=== PATIENT | female | born 1995 | race Caucasian/White ===

== ENCOUNTER 2023-10-30 19:13 | Inpatient (IN) | payer BC, SELFPAY ==
[2023-10-30 19:26] VITALS: PULSE 171; PULSE 98; O2SAT 82; O2SAT 98
[2023-10-30 19:28] VITALS: BP 133/74; PULSE 99; RESP 16; TEMP 36.7
[2023-10-30 19:34] VITALS: BMI 34.4
[2023-10-30 19:58] LABS: Absolute Lymphocyte Count 1.79 X10^3/uL (0.83-4.51); Basophil# 0.03 X10^3/uL; Basophil% 0.3 % (0-1); Eosinophil# 0.05 X10^3/uL; Eosinophils% 0.4 % (0-5); Hematocrit 32.4 % (37-47); Hemoglobin 10.2 g/dL (12.0-15.0); Lymphocyte # 1.79 X10^3/ul (0.83-4.51); Lymphocyte % 15.5 % (19-41); Mean Corp Hgb Conc 31.5 g/dL (32-36); Mean Platelet Vol. 11.8 fl (6.2-12.0); Monocyte# 0.66 X10^3/uL; Monocyte% 5.7 % (0-10); NRBC Flagged by Analyzer 0 % (0-5); Neutrophil # 8.96 X10^3/uL (2.7-7.7); Neutrophil % 77.4 % (47-70); Platelet Count 309 K/mm3 (150-450); RBC Distribution Width CV 13.7 % (11.6-14.6); RBC Distribution Width SD 44.6 fl (35.1-43.9); Red Blood Count 3.64 M/mm3 (4.2-5.4); White Blood Count 11.6 K/mm3 (4.4-11.0)
[2023-10-30] MEDS: 0.9% Normal Saline Single 100 ML IV.SOLN. INTRA-UTER (20:50)
--- NOTE | 2023-10-30 21:06 | HP.PCM.OB_ITS ---
HPI - General General Date of Admission: 10/30/23 Date of Service: 10/30/23 Chief Complaint: induction HPI Narrative LEWIS LINK, is a 28 F who presents for a scheduled induction of labor at 39 weeks for history of severe pre eclampsia at 19 week gestation with first . She denies MORA, vision changes, RUQ pain, vomiting, ctx, vb, lof. Good FM. Reports her blood pressures at home have been 110's/70's. [facility] Medical History (Updated 10/30/23 @ 21:[address] Pilar Masters, DO) IUFD at less than 20 weeks of gestation PTSD (post-traumatic stress disorder) Migraines Asthma Anxiety Home Medications ?Medication ?Instructions ?Recorded ?Last Taken ?Type aspirin 81 mg capsule 162 mg PO DAILY pre e prevention 10/30/23 10/30/23 History vit no.95-ferrous 1 tab PO DAILY 10/30/23 Unknown History fumarate 28 mg-folic acid 800 mcg tablet () sertraline 100 mg tablet (Zoloft) 100 mg PO DAILY depression/anxiety 10/30/23 10/30/23 History Allergy/AdvReac Type Severity Reaction Status Date / Time codeine Allergy Intermediate Vomiting Verified 10/30/23 19:39 oxycodone Allergy Vomiting Verified 10/30/23 19:39 Social History Smoking Status: Never smoker History Elective abortions Hx Para 0 Spontaneous abortions Hx # Term Pregnancies Ectopic pregnancies Hx # Pregnancies Multiple births # of living children NST FHR Rate Baby A Baseline: 125 Variability:: Moderate Accelerations:: 15 x 15 Decelerations:: None NST Reactive:: Yes FHR Category:: Category I Uterine Activity:: none Vital Signs Vital Signs Vital Signs: 10/30/23 19:26 10/30/23 19:26 10/30/23 19:26 Temperature Temperature Source Pulse Rate 171 H 98 Respiratory Rate Blood Pressure BP Systolic BP Diastolic Pulse Ox 82 10/30/23 19:26 10/30/23 19:28 10/30/23 19:28 Temperature Temperature Source Pulse Rate 99 Respiratory Rate Blood Pressure 133/74 H BP Systolic 133 BP Diastolic 74 Pulse Ox 98 10/30/23 19:28 10/30/23 19:28 10/30/23 19:28 Temperature 98.0 F Temperature Source Temporal Pulse Rate Respiratory Rate 16 Blood Pressure BP Systolic BP Diastolic Pulse Ox Weight Weight: 227 lb Body Mass Index (BMI) 34.4 Physical Exam Const alert and no apparent distress General Appearance: comfortable HEENT normocephalic Resp normal respiratory effort GI GI Narrative: Gravid Narrative: Cvx 0.5/t/h, posterior Extremity normal to inspection Labs Labs Labs: Antibody Screen Pending Hct 32.4 % (37-47) L Hgb 10.2 g/dL (12.0-15.0) L Syphilis Total Ab Pending Assessment & Plan (1) 39 weeks gestation of : (2) History of pre-eclampsia: PLAN: BP normal on admission. No symptoms of pre e. Pre e labs normal on 10/25/23. (3) Encounter for planned induction of labor: PLAN: Admit for routine intrapartum care. Cvx 0.5/t/h, posterior. Bedside TAUS performed confirming vertex presentation. Intracervical jules placed in usual fashion with stylet and filled with 30 cc saline. Start PO Cytotec. GBS negative. Pelvis adequate and EFW < 4500 grams. Anticipate vaginal delivery. (4) PTSD (post-traumatic stress disorder): COMMENT: from 19.6 week IUFD
[2023-10-30] MEDS: miSOPROStol 25 MCG TABLET PO (21:28)
[2023-10-30 22:58] LABS: Syphilis Antibodies Non-reactive
[2023-10-30 23:00] VITALS: BP 121/67; PULSE 78; RESP 18; TEMP 36.4
[2023-10-31] VITALS (63 sets, daily range): BP systolic 113–157; BP diastolic 60–87; PULSE 68–112; RESP 16–18; TEMP 36.6–37.4; O2SAT 85–100
[2023-10-31] MEDS: miSOPROStol 25 MCG TABLET PO (01:52)
[2023-10-31] MEDS: Lactated Ringers 1,000 ML 50 ML IV (06:05)
[2023-10-31] MEDS: Oxytocin 15 Units/NS 250ml 15 UNITS/250 ML IV.SOLN 2 UNITS IV (06:06)
--- NOTE | 2023-10-31 06:14 | NURSING ---
Reviewed and agreed with Peyton RN charting.
[2023-10-31] MEDS: Lactated Ringers 1,000 ML 999 ML IV (09:45)
--- NOTE | 2023-10-31 09:46 | PCM.PN.OB ---
Subjective Subjective Resting in bed comfortable with epidural Objective Data Objective Data Vital Signs: Vital Signs Temp Pulse Resp BP Pulse Ox 98.5 F 76 16 148/87 H 100 10/31/23 08:53 10/31/23 08:55 10/31/23 08:53 10/31/23 08:55 10/31/23 08:54 Weight: 227 lb Body Mass Index (BMI) 34.4 Intake & Output: Intake and Output for Last 24 Hours 10/29/23 10/30/23 10/31/23 23:59 23:59 23:59 Intake Total 100 / 100 4.44 / 4.44 Output Total 250 / 250 300 / 300 Balance -150 / -150 -295.56 / -295.56 Lab / Micro Data 10/30/23 19:30 Labs: Laboratory Results - last 24 hr 10/30/23 19:30: WBC 11.6 H, RBC 3.64 L, Hgb 10.2 L, Hct 32.4 L, MCV 89.0, MCH 28.0, MCHC 31.5 L, RDW Std Deviation 44.6 H, RDW Coeff of Ina 13.7, Plt Count 309, MPV 11.8, Immature Gran % (Auto) 0.700, Neut % (Auto) 77.4 H, Lymph % (Auto) 15.5 L, [place] % (Auto) 5.7, Eos % (Auto) 0.4, Baso % (Auto) 0.3, Absolute Neuts (auto) 9.0 H, Absolute Lymphs (auto) 1.79, Nucleated RBC % 0, Syphilis Total Ab Non-reactive, Blood Type A POSITIVE, Antibody Screen NEGATIVE Physical Exam Narrative: AROM moderate amount of clear fluid. 5/70/-1 NST FHR Rate Baby A Baseline: 145 Variability:: Moderate Accelerations:: 15 x 15 Decelerations:: Variable FHR Category:: Category II Uterine Activity:: Irregular Assessment & Plan (1) Encounter for planned induction of labor: (2) History of pre-eclampsia: (3) 39 weeks gestation of : PLAN: Plan 1) Continue with active management 2) Positional changes 3) Epidural for pain management 4) Pitocin per protocol
[2023-10-31] MEDS: fentaNYL-bupivacaine (epidural) 100 ML BAG EPIDURAL ×2 (10:34→15:48)
[2023-10-31] MEDS: Lactated Ringers 1,000 ML 200 ML IV (14:52)
[2023-10-31] MEDS: Oxytocin 15 Units/NS 250ml 15 UNITS/250 ML IV.SOLN 83 UNITS IV (19:00)
--- NOTE | 2023-10-31 19:28 | EX.PCM.OBRPT ---
Assessment & Plan (1) Vaginal delivery: (2) First degree perineal laceration: Maternal Data Information RAYMOND Calculator Estimated Delivery Date Method Current WG Current Estimate 11/05/23 Manual 39w 2d Vaginal Delivery Maternal Presentation Maternal Presentation: Medically Indicated Induction Type of Induction: Pitocin and Maher Bulb Medical Reason for Induction: - (history of severe preeclampsia with D&E at 19w6d) Operative Information Date of Procedure: 10/31/23 Pre-Operative Diagnosis: Induction of labor Post-Operative Diagnosis: , first degree perineal laceration Surgery / Procedure Performed: Spontaneous Vaginal Delivery Type of Anesthesia: Epidural Estimated Blood Loss: 300 ml Time of Delivery: 18:23 Findings Description of Procedure: Progressed to complete with urge to push. Epidural for pain management. of viable male over intact perineum. APGARS 8,9 respectively. Infant head delivered with body immediately forthcoming. Placed on maternal abdomen, strong cry. Mouth and nares suctioned for secretions. Pitocin started for active 3rd stage management. Cord doubly clamped and cut by FOB after pulsations ceased, delayed cord clamping. Placenta delivered intact via castillo, 3 vessel cord intact. Perineum inspected and revealed 1st degree perineal laceration. Repaired with 3.0 vicryl rapide and epidural. Fundus firm and hemostasis achieved. EBL 300ml. Mom and baby stable, planning to breastfeed. Family bonding well. Dr. Sosa notified of delivery. Presentation: Vertex and DEBBIE Amniotic Membrane Rupture Type: Artificial Amniotic Fluid Description: Clear Placental Delivery Description: Spontaneous Placenta Disposition: [facility] Cord Vessel Description: 3 Vessels Cord Entanglement: None A Gender: Male (1 minute): 9 (5 minute): 9 Delayed Cord Clamping: Yes Post Vaginal Delivery Medications Given After Delivery: IV Pitocin Episiotomy Description: None Laceration: Perineal Extension/lac and 1st degree Complication Complications: None
[2023-11-01] MEDS: Acetaminophen 500 MG Tablet 1000 MG PO ×2 (03:37→10:04)
[2023-11-01 03:38] VITALS: BP 138/88; PULSE 90; RESP 16; TEMP 36.7
[2023-11-01] MEDS: Ibuprofen 600 MG Tablet PO ×3 (05:18→21:22)
[2023-11-01 05:31] LABS: Absolute Lymphocyte Count 1.62 X10^3/uL (0.83-4.51); Absolute Neutrophil Count 11.9 X10^3/uL (2.0-7.7); Basophil# 0.03 X10^3/uL; Basophil% 0.2 % (0-1); Eosinophil# 0.06 X10^3/uL; Eosinophils% 0.4 % (0-5); Hematocrit 28.6 % (37-47); Hemoglobin 9.3 g/dL (12.0-15.0); Lymphocyte # 1.62 X10^3/ul (0.83-4.51); Lymphocyte % 11.1 % (19-41); Mean Corp Hgb Conc 32.5 g/dL (32-36); Mean Corpuscular Hgb 28.5 pg (27.0-32.0); Mean Corpuscular Volume 87.7 fL (81-99); Mean Platelet Vol. 11.4 fl (6.2-12.0); Monocyte# 0.93 X10^3/uL; Monocyte% 6.3 % (0-10); NRBC Flagged by Analyzer 0 % (0-5); Neutrophil # 11.94 X10^3/uL (2.7-7.7); Neutrophil % 81.5 % (47-70); Platelet Count 240 K/mm3 (150-450); RBC Distribution Width CV 13.9 % (11.6-14.6); RBC Distribution Width SD 44.3 fl (35.1-43.9); Red Blood Count 3.26 M/mm3 (4.2-5.4); White Blood Count 14.7 K/mm3 (4.4-11.0)
[2023-11-01 07:43] VITALS: BP 120/79; PULSE 97; RESP 16; TEMP 36.4; O2SAT 99
--- NOTE | 2023-11-01 08:59 | PCM.PN.OB ---
Subjective Subjective Doing well. Ambulating and voiding without difficulty. Mild lochia. Breast feeding. Pain managed Objective Data Objective Data Vital Signs: Vital Signs Temp Pulse Resp BP Pulse Ox O2 Del Method 97.5 F L 97 16 120/79 99 Room Air 11/01/23 07:43 11/01/23 07:43 11/01/23 07:43 11/01/23 07:43 11/01/23 07:43 11/01/23 07:43 Oxygen Delivery Method Room Air Weight: 102.965 kg Body Mass Index (BMI) 34.4 Intake & Output: Intake and Output for Last 24 Hours 10/30/23 10/31/23 11/01/23 23:59 23:59 23:59 Intake Total 100 / 100 3203.33 / 3203.33 Output Total 250 / 250 3250 / 3250 Balance -150 / -150 -46.67 / -46.67 Lab / Micro Data 11/01/23 05:25 Labs: Laboratory Results - last 24 hr 11/01/23 05:25: WBC 14.7 H, RBC 3.26 L, Hgb 9.3 L, Hct 28.6 L, MCV 87.7, MCH 28.5, MCHC 32.5, RDW Std Deviation 44.3 H, RDW Coeff of Ina 13.9, Plt Count 240, MPV 11.4, Immature Gran % (Auto) 0.500, Neut % (Auto) 81.5 H, Lymph % (Auto) 11.1 L, [place] % (Auto) 6.3, Eos % (Auto) 0.4, Baso % (Auto) 0.2, Absolute Neuts (auto) 11.9 H, Absolute Lymphs (auto) 1.62, Nucleated RBC % 0 ROS Constitutional Constitutional: Denies fatigue, fever(s) or malaise Eyes Eyes: Denies change in vision ENT HEENT: Denies dizziness or headache(s) Cardiovascular Cardiovascular: Denies chest pain, dyspnea or lightheadedness Respiratory/Chest Respiratory/Chest: Denies cough or dyspnea Gastrointestinal Gastrointestinal: Denies change in bowel habits Genitourinary Genitourinary: Denies burning urination or genital lesions Integumentary Integumentary: Denies rash Neurologic Neurologic: Denies confusion, dizziness, headache(s), numbness or weakness Physical Exam Const alert and no apparent distress Narrative: Fundus firm, below umbilicus. Assessment & Plan (1) Vaginal delivery: (2) History of pre-eclampsia: (3) First degree perineal laceration: PLAN: Plan Expect discharge tomorrow
[2023-11-01] MEDS: Sertraline 100 MG Tablet PO (10:03)
[2023-11-01] MEDS: Senna/Docusate Sodium 1 Tablet PO (10:03)
[2023-11-01 12:00] VITALS: BP 130/87; PULSE 89; RESP 16; TEMP 36.3; O2SAT 100
[2023-11-01 16:50] VITALS: BP 127/80; PULSE 71; RESP 16; TEMP 36.7; O2SAT 99
[2023-11-01 20:40] VITALS: BP 120/68; PULSE 97; RESP 16; TEMP 37; O2SAT 97
[2023-11-02 02:40] VITALS: BP 102/56; PULSE 66; RESP 18; TEMP 36.4; O2SAT 98
--- NOTE | 2023-11-02 07:52 | PCM.PN.OB ---
Subjective Subjective Doing well. Ambulating and voiding without difficulty. Mild lochia. Breast feeding. Pain managed Objective Data Objective Data Vital Signs: Vital Signs Temp Pulse Resp BP Pulse Ox O2 Del Method 97.5 F L 66 18 102/56 L 98 Room Air 11/02/23 02:40 11/02/23 02:40 11/02/23 02:40 11/02/23 02:40 11/02/23 02:40 11/02/23 02:40 Oxygen Delivery Method Room Air Weight: 102.965 kg Body Mass Index (BMI) 34.4 Intake & Output: Intake and Output for Last 24 Hours 10/31/23 11/01/23 11/02/23 23:59 23:59 23:59 Intake Total 3203.33 / 3203.33 Output Total 3250 / 3250 Balance -46.67 / -46.67 Lab / Micro Data 11/01/23 05:25 ROS Constitutional Constitutional: Denies fatigue, fever(s) or malaise Eyes Eyes: Denies change in vision ENT HEENT: Denies dizziness or headache(s) Cardiovascular Cardiovascular: Denies chest pain, dyspnea or lightheadedness Respiratory/Chest Respiratory/Chest: Denies cough or dyspnea Gastrointestinal Gastrointestinal: Denies change in bowel habits Genitourinary Genitourinary: Denies burning urination or genital lesions Integumentary Integumentary: Denies rash Neurologic Neurologic: Denies confusion, dizziness, headache(s), numbness or weakness Physical Exam Const alert and no apparent distress Narrative: Fundus firm, below umbilicus. Assessment & Plan (1) Vaginal delivery: PLAN: Plan discharge home
--- NOTE | 2023-11-02 07:52 | PCM.DC.SUM ---
Providers Date of Admission: 10/30/23 Date of Discharge: 11/02/23 Primary Care Physician: Yadira Primary Care Phys Reason For Visit: LABOR Diagnosis Discharge Diagnosis (1) Vaginal delivery: Status: Acute Code(s): O80 - Encounter for full-term uncomplicated delivery Plan discharge home Medications at Discharge Home Medications vit no.95-ferrous fumarate 28 mg-folic acid 800 mcg tablet () 1 tab PO DAILY 10/30/23 sertraline 100 mg tablet (Zoloft) 100 mg PO DAILY depression/anxiety 10/30/23 Hospital Course Operations None Procedures None Weight / BMI Weight Weight: 102.965 kg Body Mass Index (BMI) 34.4 ABG / Lab / Microbiology Data 11/01/23 05:25 D/C Instructions May resume sexual activity in: 6 weeks Please Follow Up With: Mulu Sosa MD When: Follow up with our office in 1-2 and 6 weeks or as needed. [phone] Meaningful Use Info Meaningful Use Meaningful Use Diagnoses (Choose all that apply): None applicable Ischemic Stroke Statin Dosing Therapy Reference: STATIN DOSE THERAPY REFERENCE: * Patients > 75 years receive moderate or high dose statin therapy. * Patients 75 years or YOUNGER should receive HIGH intensity statin dose unless contraindicated. You will be required to document reason for non-treatment if statin daily dose does not meet guidelines. HIGH DOSE STATIN THERAPY DAILY Atorvastatin > than or = to 40 mg Rosuvastatin > than or = to 20 mg Amlodipine + Atorvastatin > than or = to 2.5/40 mg Ezetimibe + Simvastatin 10/80 mg Simvastatin 80mg Discharge Plan Admission Admit Date/Time: 10/30/23 19:13 Primary Reason for Your Visit: labor Attending Provider: Pilar Masters Primary Care Provider: Care Physician,Yadira Primary Discharge Orders/Prescriptions Prescriptions: Continued sertraline [Zoloft] 100 mg tablet 100 mg PO DAILY PNV cmb#95-ferrous fumarate-FA [] 28 mg iron- 800 mcg tablet 1 tab PO DAILY Discontinued aspirin 81 mg capsule 162 mg PO DAILY Referrals / Follow Up: Care Physician,Yadira Primary [Primary Care Provider] - Disposition Disposition (needs filled in before D/C Order can be placed): Home, Self Care
[2023-11-02 08:23] VITALS: BP 128/76; PULSE 80; RESP 16; TEMP 36.8; O2SAT 98
[2023-11-02] MEDS: Sertraline 100 MG Tablet PO (09:44)
--- NOTE | 2023-11-02 10:52 | CASEMGMT ---
Social Work Assessment Labor and Delivery Unit Patient Address: [address] [place] [address] [address] [place] [address] Phone number: [phone] Date of Referral: 10/31/23 Time of Referral:? 145 Referred By: Pilar Masters Date of Intervention: ?11/02/23? Time of Intervention:? 944 Reason for Referral:? hx demise and anxiety Sw completed chart review and acknowledges social work consult due to maternal mental health history. Sw presented to bedside and introduced self to mother of baby (MOB- Helen) and father of baby (FOB- Viral). Sw explained reason for sw involvement and completed psychosocial assessment. History obtained from: medical records, MOB and FOB Household composition: Currently residing in the family home is MOB, FOB and baby to join family when medically ready. Patient's parent/guardian status:? ?MAY states that she and FOLeilani have been together for 10 years, after being introduced to each other by a mutual friend. No concerns reported of domestic violence or intimate partner violence. Medical History: ?MAY is 28 year old female who is 2, para 0- now 1 following labor and delivery. MAY received routine care during with [facility]. MAY has history of demise at 19 weeks gestation due to extreme preeclampsia. MAY presented to hospital for an induction of labor due to history of preeclampsia. MAY delivered baby on 10/31/23 via vaginal delivery at 39 weeks gestation. Baby boy, named Brice Arciniega, was born weighing 7lb with apgars of 9 and 9 at one and five minutes of life, respectfully. MAY is breast feeding and states that it is going well. Baby will be followed by Dr. Khoury for pediatrics. Educational Status:? Both parents graduated from high school and have attended some college. No issues with reading, learning or comprehension. Financial Status: Both parents are gainfully employed outside of the home. 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 Infant Supplies:?? Parents report that they have obtained all necessary baby supplies, including: car seat, safe sleep space, clothes, diapers and wipes. Childcare/Caregiver(s):? When both parents have to return to work they have a friend that will be able to provide childcare for . Transportation:?? Both parents have their drivers license and reliable means of transportation. Programs/Agencies Involved: ??Parents are not connected to any community agencies that assist them financially at this time. MOB does have psychiatric support provided through the [facility]. ? Children Services/Legal Issues:???No history of children services involvement. No issues or concerns warranting referral to be made at this time. Behavioral Health Issues: ??Mental Health History:??MAY has history of anxiety following the loss that she experienced at 19 weeks in 2021. MOB reports that since that time she got connected to a psychiatrist. MOB is prescribed sertraline, which she reports is beneficial and she can tell a difference with her anxiety. FOB denies mental health history. ? Substance Use History:?Parents deny substance use prior to and during . ? Family History:??Parents deny family history of addiction or significant mental health diagnoses. ??? Drug Screens: ?No drug screens observed in chart review. ? Family/Social Stressors:? Parents deny any issues, concerns or stressors at this time. Support Systems: MAY identifies that FOLeilani is her biggest support person. Depression/Shaken Baby/Safe Sleeping:? Rell educated parents on signs and symptoms of baby blues and mood and anxiety disorders to be on the lookout for. Rell explained that mother's who have a mental health history positive for anxiety, depression or other mental health diagnoses are more susceptible to experiencing mood and anxiety disorders. MOB expressed understanding. MAY reports that she intends to maintain her sertraline prescription during this period. MOB states that at this time she feels really good, mentally, and is not anxious or worried about anything. FOB reports that if MOB were to struggle he would be able to recognize that and would know how to help and support her. Rell educated parents on shaken baby prevention and ABCs of safe sleep. Parents expressed understanding. ASSESSMENT:?MOB and baby admitted following labor and delivery. MOB experienced 19 week gestational loss and since that time has struggled with anxiety. MOB is prescribed sertraline and reports that this has helped her manage her mental health symptoms. MAY has natural supports in place and has obtained all necessary baby supplies. MOB and FOB were both talkative and engaging throughout completion of psychosocial assessment. PLAN:?MOB and baby to be discharged when medically ready. MOB/ parents were provided with literature regarding: Help Me Grow, safe sleep, shaken baby prevention, [facility] resource list and education regarding mood and anxiety disorders to be aware of. ?No other services requested or indicated. Giancarlo Rose, ASH PIT WORKER, CREDIT ADVISOR
[2023-11-02 13:30] VITALS: BP 115/64; PULSE 88; RESP 18; TEMP 36.6; O2SAT 96
== END 2023-11-02 13:57 | disposition home or self-care (01) | DRG 807 ==
PROVIDERS: Advanced Practice Midwife; Admitting Provider Obstetrics & Gynecology; Referring Provider Obstetrics & Gynecology; Visit Provider Obstetrics & Gynecology
DX: O99.344 Other mental disorders complicating childbirth (principal); Z37.0 Single live birth; F43.10 Post-traumatic stress disorder, unspecified; O70.0 First degree perineal laceration during delivery; O76 Abnormality in fetal heart rate and rhythm complicating labor and delivery; Z3A.39 39 weeks gestation of pregnancy; Z79.899 Other long term (current) drug therapy; Z87.59 Personal history of other complications of pregnancy, childbirth and the puerperium
CPT/HCPCS: 59025; 59050; 76815; 85025; 86780; 86850; 86900; 86901; 99221; J7120; G0378